=== PATIENT | female | born 1970 | race Caucasian/White ===

== ENCOUNTER 2020-01-16 11:56 | Emergency (ER) | payer MEDICAID ==
[~2020-01-16] VITALS: Ht 160 cm; Wt 110.0 kg
[2020-01-16] MEDS ORDERED: HYDROCODONE/ACETAMINOPHEN 5/325MG TABLET PO STA (14:33)
[2020-01-16] MEDS ORDERED: ONDANSETRON 4MG ODT PO STA (14:33)
[2020-01-16 15:00] LABS: BASOPHILS % 0.6 % (0.0-2.0); EOSINOPHILS % 1.6 % (0.0-5.0); HEMATOCRIT. 36.3 % (36.0-48.0); HEMOGLOBIN. 12.4 g/dL (12.0-16.0); LYMPHOCYTES % 25.5 % (20.0-50.0); MEAN CORPUSCULAR HEMOGLOBIN 29.2 pg (28.0-32.0); MEAN CORPUSCULAR VOLUME 85.3 fL (81.0-99.0); MEAN PLATELET VOLUME 7.9 fl (7.4-10.4); MONOCYTES % 5.7 % (2.0-8.0); NEUTROPHILS % 66.6 % (40.0-76.0); PLATELET 303 x1000/uL (130-400); RED BLOOD CELL COUNT 4.26 mill/uL (4.2-5.4); RED CELL DISTRIBUTION WIDTH 13.2 % (11.6-14.6)
[2020-01-16 15:11] LABS: CHLORIDE 106 mEq/L (98-107)
[2020-01-16 15:18] LABS: PROTHROMBIN TIME 10.1 sec (9.6-11.0)
[2020-01-16 15:45] VITALS: BP 157/72
[2020-01-16] MEDS ORDERED: MORPHINE SULFATE 4 MG/ML CPJ (NOT FOR IM USE) IV ONE (15:45)
== END 2020-01-16 18:45 | disposition left against medical advice (07) ==
LOC: ER 11:56 → EDBEDREQ 16:12 → EDBEDREQTM 16:12 → ER 18:45 → CANBEDREQ 19:17
DX: K80.20 Calculus of gallbladder without cholecystitis without obstruction (principal); E11.9 Type 2 diabetes mellitus without complications; I10 Essential (primary) hypertension
CPT/HCPCS: 36415; 76705; 80053; 83690; 85025; 85610; 96374; 99284; J2270; Q0162

== ENCOUNTER 2024-05-25 11:25 | Inpatient (IN) | payer MEDICAID ==
[~2024-05-25] VITALS: Ht 152.4 cm; Wt 136.1 kg
[~2024-05-25 11:25] MED LIST: LIP40 MT; NAPR220C61 MT; PRED10TA MT
[2024-05-25 12:44] LABS: BASOPHILS % 0.3 % (0.0-2.0); EOSINOPHILS % 1.4 % (0.0-5.0); HEMATOCRIT. 37.8 % (36.0-48.0); HEMOGLOBIN. 12.3 g/dL (12.0-16.0); LYMPHOCYTES % 32.9 % (20.0-50.0); MEAN CORPUSCULAR HEMOGLOBIN 29.3 pg (28.0-32.0); MEAN CORPUSCULAR HGB CONC 32.4 g/dL (31.0-37.0); MEAN CORPUSCULAR VOLUME 90.3 fL (81.0-99.0); MEAN PLATELET VOLUME 8.1 fl (7.4-10.4); MONOCYTES % 5.6 % (2.0-8.0); NEUTROPHILS % 59.8 % (40.0-76.0); PLATELET 340 x1000/uL (130-400); RED BLOOD CELL COUNT 4.19 mill/uL (4.2-5.4); WHITE BLOOD COUNT 8.4 x1000/uL (4.5-11.0)
[2024-05-25 12:52] LABS: CHLORIDE 113 mEq/L (98-107); POTASSIUM 4.4 mEq/L (3.5-5.1); SODIUM 139 mEq/L (136-145)
[2024-05-25 12:53] LABS: CALCIUM 9.6 mg/dL (8.7-10.4); CARBON DIOXIDE 18 mEq/L (21-32)
[2024-05-25 12:58] LABS: GLUCOSE 135 mg/dL (70-105); UREA NITROGEN BLOOD 33 mg/dL (9-23)
[2024-05-25 13:00] LABS: ALANINE AMINOTRANSFERASE 11 IU/L (10-49); ALBUMIN 4.5 g/dL (3.2-4.8); ASPARTATE AMINOTRANSFERASE 11 IU/L (<34); BILIRUBIN DIRECT 0.1 mg/dL (<=3.0); BILIRUBIN TOTAL 0.4 mg/dL (0.1-1.0); PROTEIN TOTAL 7.4 g/dL (6.0-8.3)
[2024-05-25 13:26] LABS: HCG SCREEN INDETERMINATE
[2024-05-25] MEDS: ONDANSETRON HCL 4MG/2ML INJ IV ONE (13:33)
[2024-05-25 14:00] LABS: CREATININE 1.5 mg/dL (0.6-1.0); TROPONIN I HIGH SENSITIVITY < 4 ng/L (3.0-34)
[2024-05-25 20:30] VITALS: BP 127/99; PULSE 87; RESP 18; TEMP 36.6696; O2SAT 97
[2024-05-25] MEDS: ACETAMINOPHEN 325MG TABLET PO PRN (21:41)
[2024-05-25 22:26] VITALS: BP 95/49; PULSE 94; RESP 20; TEMP 36.50292; O2SAT 99
[2024-05-25 23:00] VITALS: BP 95/49; PULSE 94; RESP 20; TEMP 36.5292
[2024-05-26] VITALS: BP 98/48; PULSE 86; RESP 20; TEMP 37.28076; O2SAT 98
[2024-05-26] MEDS: SODIUM CHLORIDE 0.9% 1,000 ML IV SCH (01:02)
[2024-05-26] MEDS: HYDROCODONE/ACETAMINOPHEN 5/325MG TABLET PO PRN (01:03)
[2024-05-26 08:00] VITALS: BP 114/51; PULSE 69; RESP 19; TEMP 36.61404; O2SAT 92
[2024-05-26] MEDS: PANTOPRAZOLE SODIUM 40 MG/VIAL IV SCH (09:00)
[2024-05-26 09:40] LABS: HCG SCREEN INDETERMINATE
[2024-05-26 12:16] VITALS: BP 91/47; PULSE 103; RESP 18; TEMP 36.72516; O2SAT 99
[2024-05-26 13:44] VITALS: BP 94/57; PULSE 68; TEMP 98.4; O2SAT 99
[2024-05-26] MEDS: ONDANSETRON HCL 4MG/2ML INJ IV PRN (15:24)
[2024-05-26 16:00] VITALS: BP 146/115; PULSE 107; RESP 18; TEMP 36.72516; O2SAT 99
[2024-05-26 17:12] LABS: BASOPHILS % 0.5 % (0.0-2.0); EOSINOPHILS % 2.5 % (0.0-5.0); HEMATOCRIT. 34.3 % (36.0-48.0); HEMOGLOBIN. 11.1 g/dL (12.0-16.0); LYMPHOCYTES % 23.5 % (20.0-50.0); MEAN CORPUSCULAR HEMOGLOBIN 29.2 pg (28.0-32.0); MEAN CORPUSCULAR HGB CONC 32.4 g/dL (31.0-37.0); MONOCYTES % 7.5 % (2.0-8.0); PLATELET 284 x1000/uL (130-400); RED BLOOD CELL COUNT 3.81 mill/uL (4.2-5.4); RED CELL DISTRIBUTION WIDTH 14.5 % (11.6-14.6); WHITE BLOOD COUNT 7.2 x1000/uL (4.5-11.0)
[2024-05-26 17:13] LABS: CHLORIDE 110 mEq/L (98-107); POTASSIUM 4.7 mEq/L (3.5-5.1); SODIUM 138 mEq/L (136-145)
[2024-05-26 17:14] LABS: CARBON DIOXIDE 17 mEq/L (21-32)
[2024-05-26 17:19] LABS: CREATININE 1.9 mg/dL (0.6-1.0); GLUCOSE 142 mg/dL (70-105); TROPONIN I HIGH SENSITIVITY 4 ng/L (3.0-34); UREA NITROGEN BLOOD 39 mg/dL (9-23)
[2024-05-26] MEDS ORDERED: NALOXONE HCL 0.4MG/ML VIAL IV PRN (19:00)
[2024-05-26 20:00] VITALS: BP 101/49; PULSE 100; RESP 19; TEMP 36.61404; O2SAT 95
[2024-05-26] MEDS: ATORVASTATIN CALCIUM 40MG TABLET PO SCH (21:18)
[2024-05-27] VITALS: BP 114/59; PULSE 94; RESP 20; TEMP 36.72516; O2SAT 99
[2024-05-27 04:00] VITALS: BP 144/83; PULSE 95; RESP 19; TEMP 36.89184; O2SAT 95
[2024-05-27 08:00] VITALS: BP 97/54; PULSE 98; RESP 17; TEMP 36.61404; O2SAT 95
== END 2024-05-27 10:10 | disposition home or self-care (01) | DRG 251 ==
LOC: ER 11:25 → 5WST 14:08 → EDBEDREQ 14:14 → EDBEDREQTM 14:14 → 6EST 22:25
PROVIDERS: ADMIT Internal Medicine; ATTEND Internal Medicine
DX: R10.9 Unspecified abdominal pain (principal); N17.9 Acute kidney failure, unspecified; R19.7 Diarrhea, unspecified; R11.2 Nausea with vomiting, unspecified; Z68.43 Body mass index [BMI] 50.0-59.9, adult; E11.9 Type 2 diabetes mellitus without complications; E66.01 Morbid (severe) obesity due to excess calories; E78.00 Pure hypercholesterolemia, unspecified; I10 Essential (primary) hypertension; T38.3X5A Adverse effect of insulin and oral hypoglycemic [antidiabetic] drugs, initial encounter; Y92.89 Other specified places as the place of occurrence of the external cause
CPT/HCPCS: 36415; 71045; 80048; 80076; 82962; 84484; 84702; 84703; 85025; 93005; 99291; C1893; J2405; J7030